=== PATIENT | female | born 1940 | race Native Hawaiian/Other Pacific Islander ===

== ENCOUNTER 2020-03-15 17:23 | Outpatient (CLI) | payer OTHER, BC ==
[2020-03-15 18:32] LABS: PLATELET COUNT 455 K/uL (152-353)
[2020-03-15 18:43] LABS: POTASSIUM 4.4 mmol/L (3.6-5.2)
== END 2020-03-15 22:39 | disposition home or self-care (01) ==
LOC: LAB 17:23
PROVIDERS: Family Medicine
DX: Z79.899 Other long term (current) drug therapy (principal); R53.83 Other fatigue; R53.81 Other malaise; F41.8 Other specified anxiety disorders; F32.9 Major depressive disorder, single episode, unspecified; E53.8 Deficiency of other specified B group vitamins; E55.9 Vitamin D deficiency, unspecified; J45.909 Unspecified asthma, uncomplicated; E03.8 Other specified hypothyroidism; R60.0 Localized edema; M19.90 Unspecified osteoarthritis, unspecified site; E88.81 Metabolic syndrome and other insulin resistance
CPT/HCPCS: 80053; 80061; 82306; 82607; 83036; 84439; 84443; 85027

== ENCOUNTER 2020-08-29 19:08 | Outpatient (CLI) | payer OTHER, BC ==
[2020-08-29 20:32] LABS: PLATELET COUNT 381 K/uL (152-353)
[2020-08-29 21:44] LABS: POTASSIUM 4.3 mmol/L (3.6-5.2)
== END 2020-08-29 21:32 | disposition home or self-care (01) ==
LOC: LAB 19:08
PROVIDERS: ATTEND Nurse Practitioner Family
DX: Z00.00 Encounter for general adult medical examination without abnormal findings (principal); F41.1 Generalized anxiety disorder; F32.9 Major depressive disorder, single episode, unspecified; E55.9 Vitamin D deficiency, unspecified; E53.8 Deficiency of other specified B group vitamins; E03.8 Other specified hypothyroidism; Z79.899 Other long term (current) drug therapy; R53.83 Other fatigue; R53.81 Other malaise; F41.8 Other specified anxiety disorders; E88.81 Metabolic syndrome and other insulin resistance
CPT/HCPCS: 80053; 80061; 82306; 82607; 83036; 84439; 84443; 85027